=== PATIENT | male | born 1965 | race Caucasian/White ===

== ENCOUNTER 2021-01-23 23:54 | Emergency (ER) | payer BC ==
[2021-01-24] MEDS ORDERED: Albuterol/Ipratropium 3.0-0.5 MG/3 ML Neb Soln NEB ONE (00:08)
--- NOTE | 2021-01-24 00:12 | EDM.PDOC ---
ED HPI GENERAL MEDICAL PROBLEM - General Chief Complaint: Respiratory Problem Stated Complaint: SOB Time Seen by Provider: 01/23/21 23:59 Source of Information: Reports: Patient, Family History Limitations: Reports: No Limitations - History of Present Illness INITIAL COMMENTS - FREE TEXT/NARRATIVE: This is a 55-year-old male. Chills for the last week but no documented fever. Since Tuesday he has been short of breath and having a hard time lying down due to the shortness of breath. He also has a productive cough at times. He has a history of having multiple pneumonias in the past but the last time was about 5 years ago. He feels like he is got pneumonia again. His pulse ox on room air is 92% and he does have some mild expiratory wheezing and a tendency to want a cough with every respiration. He is sitting upright because of he lies down or even at a slant he gets more short of breath and starts coughing more. Temperature upon arrival to the ER was 97.5. - Related Data Allergies Allergy/AdvReac Type Severity Reaction Status Date / Time No Known Allergies Allergy Verified 06/01/16 23:31 Home Meds: Home Meds Losartan Potassium 50 mg PO DAILY 01/23/21 [History] Albuterol/Ipratropium [DuoNeb 3.0-0.5 MG/3 ML] 3 ml .XX Q6HR PRN #30 neb 01/24/21 [Rx] Azithromycin [Zithromax] 250 mg PO DAILY #7 tablet 01/24/21 [Rx] Past Medical History Cardiovascular History: Reports: Hypertension - Past Surgical History Musculoskeletal Surgical History: Reports: Arthroscopic Procedure Social & Family History - Tobacco Use Tobacco Use Status *Q: Never Tobacco User - Recreational Drug Use Recreational Drug Use: No ED ROS GENERAL - Review of Systems Review Of Systems: See Below Constitutional: Reports: Chills, Fatigue HEENT: Reports: No Symptoms Respiratory: Reports: Shortness of Breath, Wheezing, Cough. Denies: Pleuritic Chest Pain Cardiovascular: Denies: Chest Pain Endocrine: Reports: No Symptoms GI/Abdominal: Denies: Abdominal Pain, Nausea, Vomiting : Reports: No Symptoms Musculoskeletal: Reports: No Symptoms Skin: Reports: No Symptoms Neurological: Reports: No Symptoms Psychiatric: Reports: No Symptoms Hematologic/Lymphatic: Reports: No Symptoms Immunologic: Reports: No Symptoms ED EXAM, GENERAL - Physical Exam Exam: See Below Exam Limited By: No Limitations General Appearance: Alert, WD/WN, Mild Distress Eye Exam: Bilateral Eye: Normal Inspection Ears: Normal External Exam, Normal Canal, Normal TMs Nose: Normal Inspection Throat/Mouth: Normal Inspection, Normal Lips, Normal Oropharynx, Normal Voice, No Airway Compromise Head: Normocephalic Neck: Supple Respiratory/Chest: Other (You are to have crackles in the right lower base noted, some expiratory wheezing in the other rodríguez and dullness in the right lower base. He is not in respiratory distress but he is having the need to cough slightly every time he takes a deep breath.) Cardiovascular: Regular Rate, Rhythm, No Murmur GI/Abdominal: Soft Back Exam: Normal Inspection, Full Range of Motion Extremities: Normal Inspection, Normal Range of Motion Neurological: Alert, Oriented Psychiatric: Normal Affect, Normal Mood Skin Exam: Warm, Dry Course - Vital Signs Last Recorded V/S: Last Vital Signs Temp 97.5 F 01/23/21 23:58 Pulse 86 01/23/21 23:58 Resp 17 01/23/21 23:58 BP 119/82 01/23/21 23:58 Pulse Ox 92 L 01/24/21 00:42 - Orders/Labs/Meds Orders: Active Orders 24 hr Category Date Time Status RT Aerosol Therapy [RC] ASDIRECTED Care 01/24/21 00:08 Active Chest 2V [CR] Stat Exams 01/24/21 00:07 Taken CULTURE BLOOD [BC] Stat Lab 01/24/21 00:20 Received CULTURE BLOOD [BC] Stat Lab 01/24/21 00:27 Received Blood Culture x2 Reflex Set [OM.PC] Stat Oth 01/24/21 00:07 Ordered Labs: Laboratory Tests 01/24/21 01/24/21 01/24/21 Range/Units 00:10 00:20 00:20 WBC 4.59 (4.23-9.07) K/mm3 RBC 4.85 (4.63-6.08) M/mm3 Hgb 14.2 (13.7-17.5) gm/dl Hct 42.2 (40.1-51.0) % MCV 87.0 (79.0-92.2) fl MCH 29.3 (25.7-32.2) pg MCHC 33.6 (32.2-35.5) g/dl RDW Std Deviation 40.6 (35.1-43.9) fL Plt Count 212 (163-337) K/mm3 MPV 10.3 (9.4-12.3) fl Neut % (Auto) 57.8 (34.0-67.9) % Lymph % (Auto) 27.2 (21.8-53.1) % Faulk % (Auto) 13.7 H (5.3-12.2) % Eos % (Auto) 0.7 L (0.8-7.0) Baso % (Auto) 0.4 (0.1-1.2) % Neut # (Auto) 2.65 (1.78-5.38) K/mm3 Lymph # (Auto) 1.25 L (1.32-3.57) K/mm3 Faulk # (Auto) 0.63 (0.30-0.82) K/mm3 Eos # (Auto) 0.03 L (0.04-0.54) K/mm3 Baso # (Auto) 0.02 (0.01-0.08) K/mm3 Puncture Site Rt radial ABG pH 7.41 (7.35-7.45) ABG pCO2 39.8 (35.0-45.0) mmHg ABG pO2 65.0 L (80.0-100.0) mmHg ABG HCO3 24.5 (22.0-26.0) meq/L ABG O2 Saturation 91.9 L (96.0-97.0) % ABG Base Excess 0.4 (-2-2.0) Jcarlos Test Positive A-a Gradient 35 mmHg O2 Delivery Device Room air FiO2 21.00 (21.00-100.00) % Sodium 139 (136-145) mEq/L Potassium 3.5 (3.5-5.1) mEq/L Chloride 102 (98-107) mEq/L Carbon Dioxide 27 (21-32) mEq/L Anion Gap 13.5 (5-15) BUN 12 (7-18) mg/dL Creatinine 0.9 (0.7-1.3) mg/dL Est Cr Clr Drug Dosing 88.67 mL/min Estimated GFR (MDRD) > 60 (>60) mL/min BUN/Creatinine Ratio 13.3 L (14-18) Glucose 97 (74-106) mg/dL Lactic Acid (0.4-2.0) mmol/L Calcium 8.3 L (8.5-10.1) mg/dL Total Bilirubin 0.4 (0.2-1.0) mg/dL AST 22 (15-37) U/L ALT 34 (16-63) U/L Alkaline Phosphatase 83 (46-116) U/L C-Reactive Protein 1.8 H* (<1.0) mg/dL Total Protein 6.7 (6.4-8.2) g/dl Albumin 3.3 L (3.4-5.0) g/dl Globulin 3.4 gm/dL Albumin/Globulin Ratio 1.0 (1-2) Influenza Type A RNA (NEGATIVE) Influenza Type B RNA (NEGATIVE) SARS-CoV-2 RNA (RENÉ) (NEGATIVE) 01/24/21 01/24/21 Range/Units 00:20 01:20 WBC (4.23-9.07) K/mm3 RBC (4.63-6.08) M/mm3 Hgb (13.7-17.5) gm/dl Hct (40.1-51.0) % MCV (79.0-92.2) fl MCH (25.7-32.2) pg MCHC (32.2-35.5) g/dl RDW Std Deviation (35.1-43.9) fL Plt Count (163-337) K/mm3 MPV (9.4-12.3) fl Neut % (Auto) (34.0-67.9) % Lymph % (Auto) (21.8-53.1) % Faulk % (Auto) (5.3-12.2) % Eos % (Auto) (0.8-7.0) Baso % (Auto) (0.1-1.2) % Neut # (Auto) (1.78-5.38) K/mm3 Lymph # (Auto) (1.32-3.57) K/mm3 Faulk # (Auto) (0.30-0.82) K/mm3 Eos # (Auto) (0.04-0.54) K/mm3 Baso # (Auto) (0.01-0.08) K/mm3 Puncture Site ABG pH (7.35-7.45) ABG pCO2 (35.0-45.0) mmHg ABG pO2 (80.0-100.0) mmHg ABG HCO3 (22.0-26.0) meq/L ABG O2 Saturation (96.0-97.0) % ABG Base Excess (-2-2.0) Jcarlos Test A-a Gradient mmHg O2 Delivery Device FiO2 (21.00-100.00) % Sodium (136-145) mEq/L Potassium (3.5-5.1) mEq/L Chloride (98-107) mEq/L Carbon Dioxide (21-32) mEq/L Anion Gap (5-15) BUN (7-18) mg/dL Creatinine (0.7-1.3) mg/dL Est Cr Clr Drug Dosing mL/min Estimated GFR (MDRD) (>60) mL/min BUN/Creatinine Ratio (14-18) Glucose (74-106) mg/dL Lactic Acid 0.7 (0.4-2.0) mmol/L Calcium (8.5-10.1) mg/dL Total Bilirubin (0.2-1.0) mg/dL AST (15-37) U/L ALT (16-63) U/L Alkaline Phosphatase (46-116) U/L C-Reactive Protein (<1.0) mg/dL Total Protein (6.4-8.2) g/dl Albumin (3.4-5.0) g/dl Globulin gm/dL Albumin/Globulin Ratio (1-2) Influenza Type A RNA Negative (NEGATIVE) Influenza Type B RNA Negative (NEGATIVE) SARS-CoV-2 RNA (RENÉ) Negative (NEGATIVE) Meds: Medications Discontinued Medications Generic Name Dose Route Start Last Admin Trade Name Freq PRN Reason Stop Dose Admin Albuterol/Ipratropium 3 ml 01/24/21 00:08 01/24/21 00:39 Duoneb 3.0-0.5 Mg/3 Ml NEB 01/24/21 00:09 3 ml ONETIME ONE Administration Albuterol/Ipratropium Confirm 01/24/21 00:31 01/24/21 00:40 Duoneb 3.0-0.5 Mg/3 Ml Administered 01/24/21 00:32 Not Given Dose 3 ml .ROUTE .STK-MED ONE Azithromycin 500 mg/ Sodium 250 mls @ 250 mls/hr 01/24/21 01:20 01/24/21 01:29 Chloride IV 01/24/21 02:19 250 mls/hr ONETIME ONE Administration - Radiology Interpretation Free Text/Narrative:: Chest x-ray shows a right lower lobe pneumonia - Re-Assessments/Exams Free Text/Narrative Re-Assessment/Exam: 01/24/21 01:14 I spoke to the patient regarding the chest x-ray findings. He denies ever having Covid or being exposed to anyone with Covid. He does not really have the symptoms of Covid but I am going to check him for Covid and the flu. My impression looking at his blood work so far would suggest this is mycoplasma pneumonia. 01/24/21 02:43 Patient states he is feeling better. We gave him a breathing treatment that seemed to help and also gave him 500 mg of IV Zithromax. We will continue with the Zithromax and I have encouraged him and his that if things start getting a rough he is short of breath especially at rest he needs to return to the ER for possible admission. They both state that they understand. Departure - Departure Time of Disposition: :43 Disposition: Home, Self-Care 01 Condition: Fair Clinical Impression: Right lower lobe pneumonia Qualifiers: Pneumonia type: due to Mycoplasma pneumoniae Qualified Code(s): J15.7 - Pneumonia due to Mycoplasma pneumoniae Mycoplasma pneumonia Qualifiers: Laterality: right Lung location: lower lobe of lung Qualified Code(s): J15.7 - Pneumonia due to Mycoplasma pneumoniae - Discharge Information *PRESCRIPTION DRUG MONITORING PROGRAM REVIEWED*: Not Applicable *COPY OF PRESCRIPTION DRUG MONITORING REPORT IN PATIENT MICHAELA: Not Applicable Prescriptions: Albuterol/Ipratropium [DuoNeb 3.0-0.5 MG/3 ML] 3 ml .XX Q6HR PRN #30 neb PRN Reason: Shortness Of Breath Azithromycin [Zithromax] 250 mg PO DAILY #7 tablet Instructions: Community-Acquired Pneumonia, Adult, [id number] Forms: ED Department Discharge, ED Return to Work/School Form Additional Instructions: Rest as much as possible, drink lots of fluids to stay well-hydrated, avoid caffeine and sugar, take the DuoNeb treatments every 6-8 hours as needed for shortness of breath or wheezing, start the Zithromax Tuesday, you must follow-up with your family doctor this coming week for recheck, take some Tylenol or ibuprofen if you notice you have a fever or chills, if it anytime you feel like you are getting worse or more short of breath you need to return to the ER immediately Sepsis Event Note (ED) - Evaluation Sepsis Screening Result: No Definite Risk - Focused Exam Vital Signs: Vital Signs Temp Pulse Resp BP Pulse Ox Pulse Ox 01/24/21 00:42 92 L 01/23/21 23:58 97.5 F 86 17 119/82 96 - My Orders Last 24 Hours: My Active Orders 01/24/21 00:07 Chest 2V [CR] Stat Blood Culture x2 Reflex Set [OM.PC] Stat 01/24/21 00:08 RT Aerosol Therapy [RC] ASDIRECTED 01/24/21 00:20 CULTURE BLOOD [BC] Stat 01/24/21 00:27 CULTURE BLOOD [BC] Stat - Assessment/Plan Last 24 Hours: My Active Orders 01/24/21 00:07 Chest 2V [CR] Stat Blood Culture x2 Reflex Set [OM.PC] Stat 01/24/21 00:08 RT Aerosol Therapy [RC] ASDIRECTED 01/24/21 00:20 CULTURE BLOOD [BC] Stat 01/24/21 00:27 CULTURE BLOOD [BC] Stat
[2021-01-24] MEDS ORDERED: Albuterol/Ipratropium 3.0-0.5 MG/3 ML Neb Soln ONE (00:31)
[2021-01-24] MEDS ORDERED: Azithromycin 500 MG in Sodium Chloride 0.9% 250 ML IV ONE (01:20)
[2021-01-24 02:11] LABS: CORONAVIRUS COVID-19 NAA NEGATIVE (NEGATIVE)
[2021-01-24 02:58] VITALS: BP 114/83; PULSE 91
--- NOTE | 2021-01-26 14:40 | CR ---
Chest: 2 views of the chest were obtained. Comparison: No previous study. Slight area of increased density within the right lung base is seen. Lungs otherwise are clear. Heart size and mediastinum are normal. Bony structures are unremarkable. Impression: 1. Slight density within the right lung base either due to mild amount of pneumonia or atelectasis. 2. Nothing acute is otherwise seen. Diagnostic code #3
== END 2021-01-24 02:56 | disposition home or self-care (01) ==
LOC: JD.ED 23:54
DX: J15.7 Pneumonia due to Mycoplasma pneumoniae (principal); I10 Essential (primary) hypertension; Z20.822 Contact with and (suspected) exposure to COVID-19; Z79.899 Other long term (current) drug therapy
CPT/HCPCS: 0240U; 36415; 36600; 71046; 80053; 82803; 83605; 85025; 86140; 87040; 94640; 96365; 99285; J0456; J7050; 99284; J7620-GY

== ENCOUNTER 2023-06-09 01:24 | Emergency (ER) | payer BC, OTHER ==
[2023-06-09] MEDS ORDERED: Ketorolac 30 MG/ML SDV IVPUSH ONE (01:37)
[2023-06-09] MEDS ORDERED: Ondansetron 4 MG/2 ML SDV IVPUSH ONE (01:38)
[2023-06-09] MEDS ORDERED: Ketorolac 30 MG/ML SDV ONE (01:40)
[2023-06-09] MEDS ORDERED: Morphine 4 MG/ML Syringe IVPUSH ONE ×2 (01:49→02:42)
[2023-06-09] MEDS ORDERED: Tamsulosin 0.4 MG Cap.ER PO ONE (02:27)
[2023-06-09 03:05] VITALS: BP 127/82; PULSE 76
== END 2023-06-09 03:00 | disposition home or self-care (01) ==
LOC: JD.ED 01:24
DX: N23 Unspecified renal colic (principal); I10 Essential (primary) hypertension; Z79.899 Other long term (current) drug therapy
CPT/HCPCS: 74176; 96374; 96375; 96376; 99284; A9270; J1885; J2270; J2405